=== PATIENT | male | born 1980 ===

== ENCOUNTER 2023-04-12 19:16 | Emergency (ER) | payer OTHER, SELFPAY ==
--- NOTE | ~2023-04-12 | XR_ITS ---
EXAMINATION: XR FINGER, LEFT CLINICAL INFORMATION: Laceration to tip of third digit COMPARISON: None available. TECHNIQUE: 3 views of the left middle finger. FINDINGS: There is disruption of the soft tissues at the tip of the third digit. The bones are normal. No fracture. Alignment is anatomic except for what appears to be a flexion deformity at the PIP joint of the fifth digit. Joint spaces are maintained. No radiopaque foreign bodies. XR/XR finger LT min 2V IMPRESSION: No evidence of a traumatic osseous injury. Soft tissue injury tip of third digit.
[2023-04-12 19:24] VITALS: BP 113/78; PULSE 79; RESP 18; TEMP 36.8; O2SAT 97; BMI 24.9
--- NOTE | 2023-04-12 19:27 | ED_ITS ---
HPI - General Adult General Chief complaint: Wound/Laceration Stated complaint: WC/left middle finger laceration Time Seen by Provider: 04/12/23 22:57 Source: patient Mode of arrival: ambulatory Limitations: no limitations History of Present Illness HPI narrative: Patient is a 43-year-old male who presents to the emergency department for evaluation of a laceration to the distal tip of the left 3rd digit. Sustained earlier this morning at approximately 11:00 from a crab meat processor. Bleeding controlled at this time. He states that he did clean it with water and iodine. He is unaware the date of his last tetanus vaccination. Reports pain associated with this, he is able to completely flex and extend the digit. Related Data Previous Rx's Medication Instructions Recorded cephalexin 500 mg capsule 500 mg PO QID #27 caps 04/12/23 Allergies Allergy/AdvReac Type Severity Reaction Status Date / Time penicillin V Allergy Unknown hives Verified 04/12/23 19:24 No Known Allergies Allergy Unverified 12/13/19 15:22 Review of Systems Review of Systems: Yes all other systems are reviewed and are negative PMFSH Past Medical History Attestation statement: The following information was validated with the patient. Source: old records reviewed Onset Date is defined in the Problem List Problems that require an onset date and time if occurred within 24 hrs of arrival to the ED Aortic Dissection and Rupture; Neurologic impairment; Cardiopulmonary Arrest; Endotracheal Intubation; Insertion or Replacement of Mechanical Circulatory Assist Device Medical History Asthma Social History Social History Alcohol intake: current Alcohol type: beer Smoked in Last 30 Days: No Use of substances other than those prescribed or required for medical reasons: No Advance Directives: No Advance Directives Information Provided: No Physical Exam ED Vital Signs: Vital Signs - 24 hr 04/12/23 19:24 04/12/23 22:50 Temperature 98.2 F 98.1 F Pulse Rate 79 72 Respiratory Rate 18 16 Blood Pressure 113/78 126/91 H Pulse Oximetry 97 97 Oxygen Delivery Method Room Air Room Air BMI result Body Mass Index 24.9 Appearance: Alert.?Oriented to person, place and time. No acute distress.?Normal affect. Neck: Normal inspection.? Neck supple.?? CVS: Heart sounds normal. Normal heart rate and rhythm.? Pulses normal.?? Respiratory: No respiratory distress.? Lung sounds clear to auscultation bilaterally?? Skin: Skin warm and dry.? Normal skin color.? Left 3rd digit 2 cm laceration to the distal tip, edges well approximated no active bleeding. Extremities: No extremity edema.? Neuro: Moves all extremities spontaneously. Sensation intact bilaterally. Ambulates with normal steady gait. Course Course Course Narrative: This is a rapid medical exam: Additional HPI, ROS, PE not included below will be deferred to primary provider. Patient is a 43-year-old right hand dominant male presenting to the ED with laceration to left middle finger. States he was speaking with his co-worker and accidentally sliced his finger on the crab meat processor. Does not believe tetanus vaccine is UTD. Avulsion to distal tip of left 3rd finger, bleeding controlled, sensation and ROM intact. Plan: Tdap, x-ray Medications Administered Discontinued Medications Generic Name Dose Route Start Last Admin Trade Name Freq PRN Reason Stop Dose Admin Diphtheria/Tetanus/Acell Pertussis 0.5 ml 04/12/23 19:34 04/12/23 22:45 Diphth,Pertus(Acell),Tet Adult 0.5 Ml Syringe IM 04/12/23 19:35 0.5 ml .ONCE ONE Administration Procedures Laceration Laceration 1: Site: hand Side (If applicable): left Size (cm): 2 Description: flap Depth: simple, single layer Local Anesthetic: lidocaine 1% Amount of anesthesia used (mL): 3 Pre-repair: wound explored, irrigated extensively and deep structures intact Skin layer closed with: nylon Size (cm): 5-0 Number of sutures: 2 Technique: simple, interrupted Nerve Block Nerve Block 1: Time out performed: Yes Local Anesthetic: lidocaine 1% Amount of anesthesia used (mL): 3 Side: left Nerve Blocks: digital Procedure Successful: Yes Patient Tolerated Procedure: well Complications: none Medical Decision Making Medical Decision Making MDM Narrative: Patient is a 43-year-old male who presents emergency department for evaluation of traumatic laceration to the distal tip of the left 3rd digit as per HPI from a crab meat processor. Tdap was updated today. No active bleeding, is able to fully flex and extend the digit so I have a low suspicion for tendon involvement. XR reveals no evidence of osseous abnormality or retained foreign body. The extremity is neurovascularly intact distally. There is some scant bleeding with movement of the digit. Closure with suture as per procedure section of this note. Prophylactic antibiotics sent to patient's pharmacy. Reviewed worrisome signs and symptoms that would warrant re-evaluation. Discharged in stable condition. Differential Diagnosis Differential Diagnoses: The differential diagnosis associated with the presentation includes (As noted above) Independent Interpretation I performed an independent interpretation of an: Plain X-Ray (I personally interpreted XR imaging and agree with radiologist impression) Radiology Impression Discussion of test interpretation with radiology: I have reviewed the radiologist's reading. Radiologist Impression: XR/XR finger LT min 2V IMPRESSION: No evidence of a traumatic osseous injury. Soft tissue injury tip of third digit. Prescription Management I considered prescription management with: Pain Medication (Acetaminophen/ibuprofen) and Antibiotic Discharge Plan Discharge Clinical Impression: Laceration Patient Disposition: Home, Self-Care Instructions: Laceration (ED), Stitches Removal (ED) Additional Instructions: You can take ibuprofen 200 mg, 3 tablets (600mg) every 6-8 hours as needed for pain, in addition to Tylenol 500 mg, 2 tablets (1,000mg) every 4-6 hours as needed for pain, but not to exceed 3 doses daily (3,000mg).? You tetanus vaccine was updated today. Return in 10-14 days to have stitches removed. Complete entire course of antibiotics to prevent infection. Return back to emergency department any new or worsening symptoms or concerns. Prescriptions: New cephalexin 500 mg capsule 500 mg PO QID Qty: 27 0RF
--- NOTE | 2023-04-12 22:41 | PC.NURSE ---
pt just brought back to the room from the waiting room denies pain, pt is alert oriented, finger lac with dressing intact no bleeding noted at this time.
[2023-04-12] MEDS: Diphth,Pertus(ACell),Tet Adult 0.5 ML SYRINGE IM (22:45)
[2023-04-12 22:50] VITALS: BP 126/91; PULSE 72; RESP 16; TEMP 36.7; O2SAT 97
[2023-04-13] MEDS: Lidocaine HCl 1 % MPF 5 ML VIAL SUBCUT (01:06)
[2023-04-13] MEDS: cephALEXin 500 MG CAPSULE PO (01:06)
== END 2023-04-13 01:10 | disposition home or self-care (01) ==
PROVIDERS: Emergency Provider Internal Medicine
DX: S61.213A Laceration without foreign body of left middle finger without damage to nail, initial encounter (principal); W31.82XA Contact with other commercial machinery, initial encounter; Y93.G1 Activity, food preparation and clean up; Y92.512 Supermarket, store or market as the place of occurrence of the external cause; Y99.0 Civilian activity done for income or pay; Z20.01 Contact with and (suspected) exposure to intestinal infectious diseases due to Escherichia coli (E. coli); Z23 Encounter for immunization
CPT/HCPCS: 12001; 73140; 90471; 90715; 99284